=== PATIENT | female | born 1995 | race African-American/Black ===

== ENCOUNTER 2018-07-25 02:17 | Inpatient (IN) | payer BC, OTHER ==
[2018-09-16] MEDS ORDERED: Butorphanol Tartrate 1 MG/ML VIAL SLOW IVP PRN (21:04)
[2018-09-16] MEDS ORDERED: Lactated Ringer's 1,000 ML IV SCH (21:04)
[2018-09-16] MEDS ORDERED: NS w/ Oxytocin 10 units 500 ML IV SCH (21:04)
[2018-09-16] MEDS ORDERED: HYDROcodone/Acetaminophen 5/325 mg Tablet PO PRN ×2 (21:04)
[2018-09-16] MEDS ORDERED: Ibuprofen 800 MG TAB PO PRN (21:04)
[2018-09-16] MEDS ORDERED: Promethazine HCl 25 MG/ML VIAL IM PRN (21:04)
[2018-09-16] MEDS ORDERED: Lidocaine 1% (PF) 30 ML VIAL SC PRN (21:04)
[2018-09-16] MEDS ORDERED: Ondansetron PF 4 MG/2 ML Vial IVP PRN (21:04)
[2018-09-16] MEDS ORDERED: NS / Oxytocin 40 units/1000ml 1,000 ML IV PRN (21:04)
[2018-09-16 22:16] VITALS: BMI 25.0
[2018-09-16 22:16] LABS: Hemoglobin 11.5 g/dL (12.0-16.0); Mean Corpuscular HGB CONC 31.8 g/dL (32.0-36.0); Mean Corpuscular Hemoglobin 25.5 pg (27.0-31.0); Mean Platelet Volume 13.2 fL (7.4-10.4); Platelet Count 135 thou/uL (130-400); RBC Distribution Width 15.6 % (11.5-14.5); Red Blood Cell (RBC) Count 4.51 mill/uL (4.20-5.40); White Blood Cell (WBC) Count 8.6 thou/uL (4.8-10.8)
[2018-09-16] MEDS: Lactated Ringer's 1,000 ML IV SCH (22:27)
[2018-09-16] MEDS ORDERED: Misoprostol 100 MCG TAB VAG SCH (22:30)
[2018-09-16 22:31] LABS: Syphilis Antibody Nonreactive (Nonreactive); Syphilis Antibody Index 0.05 S/CO (<1.00 Non-Reactive)
[2018-09-17 00:03] LABS: HBSAg Index 0.41 S/CO (0-0.99); Hep B Surf Ag Non-Reactive S/CO (NonReactive)
[2018-09-17] MEDS: Misoprostol 100 MCG TAB VAG SCH ×4 (03:35→18:39)
[2018-09-17] MEDS: Lactated Ringer's 1,000 ML IV SCH ×2 (03:40→18:39)
[2018-09-17] MEDS ORDERED: Fentanyl 4 mcg/Bup 0.1% Cadd 100 ML ONE (08:11)
[2018-09-17] MEDS ORDERED: Promethazine HCl 25 MG/ML VIAL IM PRN ×2 (08:14→13:59)
[2018-09-17] MEDS ORDERED: Lactated Ringer's 500 ML IV PRN (08:14)
[2018-09-17] MEDS ORDERED: Acetaminophen 325 MG TAB PO PRN (08:14)
[2018-09-17] MEDS ORDERED: Naloxone HCl 0.4 mg/ml Vial IVP PRN ×2 (08:14)
[2018-09-17] MEDS ORDERED: diphenhydrAMINE 50 MG/ML VIAL IVP PRN (08:14)
[2018-09-17] MEDS ORDERED: Ondansetron PF 4 MG/2 ML Vial IVP PRN ×2 (08:14→13:59)
[2018-09-17] MEDS ORDERED: ePHEDrine/0.9% NaCl/PF SYRINGE 50 mg/10 ml SLOW IVP PRN (08:14)
[2018-09-17] MEDS ORDERED: Fentanyl 4 mcg/Bupivacaine 0.1% Cassette 100 ML EPIDURAL SCH (08:15)
[2018-09-17] MEDS ORDERED: Communication Order-Pharmacy FS SCH (08:15)
[2018-09-17] MEDS ORDERED: NS / Oxytocin 40 units/1000ml 1,000 ML ONE (11:06)
--- NOTE | 2018-09-17 13:46 | PDOC.OPDEL ---
OB Operative/Delivery Note Delivery Dr/Surgeon: Yaya for [facility] Pre-Delivery Diagnosis: elective induction Procedure/Post Delivery Dx: spontaneous vaginal delivery Weeks gestation: 39 Anesthesia: epidural - Findings A Sex: female Weight: 0 oz ( and wt pending ) - Additional Findings/Plan Placenta delivered: spontaneous Repaired Obstetrical Laceration: 1st degree (repair 2-0 chromic) Estimated blood loss: 300 Post delivery plan: routine recovery
[2018-09-17] MEDS ORDERED: Adacel (T-DAP) 0.5 ML SYRINGE IM ONE (13:59)
[2018-09-17] MEDS ORDERED: HYDROcodone/Acetaminophen 5/325 mg Tablet PO PRN ×2 (13:59)
[2018-09-17] MEDS ORDERED: Milk Of Magnesia 30 ML UDCUP PO PRN (13:59)
[2018-09-17] MEDS ORDERED: Benzocaine-Menthol 82.5 ML CAN TOP PRN (13:59)
[2018-09-17] MEDS ORDERED: diphenhydrAMINE 25 MG CAP PO PRN (13:59)
[2018-09-17] MEDS ORDERED: Preparation H Ointment 28 GM TUBE PR PRN (13:59)
[2018-09-17] MEDS ORDERED: Bisacodyl 10 MG SUPP PR PRN (13:59)
[2018-09-17] MEDS ORDERED: Zolpidem Tartrate 5 MG TAB PO PRN (13:59)
[2018-09-17] MEDS ORDERED: NS / Oxytocin 40 units/1000ml 1,000 ML IV SCH (14:00)
[2018-09-17] MEDS: Ibuprofen 800 MG TAB PO SCH ×2 (16:11→22:09)
[2018-09-17] MEDS: Ferrous Sulfate 325 MG TAB PO SCH (18:19)
[2018-09-17] MEDS: Docusate Calcium (SURFAK) 240 MG CAP PO SCH (22:11)
[2018-09-18] MEDS: Ibuprofen 800 MG TAB PO SCH ×3 (05:27→21:14)
[2018-09-18] MEDS: Ferrous Sulfate 325 MG TAB PO SCH ×2 (08:32→16:37)
[2018-09-18] MEDS: Docusate Calcium (SURFAK) 240 MG CAP PO SCH ×2 (08:33→21:14)
[2018-09-18] MEDS: Prenatal Vitamin 1 TAB PO SCH (08:33)
[2018-09-19] MEDS: Ibuprofen 800 MG TAB PO SCH ×2 (06:06→13:31)
--- NOTE | 2018-09-19 07:35 | DIS ---
DATE OF ADMISSION: 09/16/2018 DATE OF DISCHARGE: 09/19/2018 ADMITTING DIAGNOSIS: Term induction of labor. DISCHARGE DIAGNOSIS: Term induction of labor. PROCEDURE PERFORMED: Term spontaneous vaginal delivery. CONSULTATIONS: None. HOSPITAL COURSE: The patient is a 23-year-old, G1, now P1, female, who was admitted to the hospital at 39 weeks and 6 days for elective induction of labor with a cervical exam of 3, 90, and zero station. The patient proceeded with an uncomplicated term spontaneous vaginal delivery. For complete details, please refer to the delivery note. Her course has been uncomplicated. Today is day 2. The patient reports that she is tolerating p.o., voiding on her own, having decreased lochia. Her predelivery hemoglobin was 11.5, hematocrit 36.1, and platelets 135,000. PHYSICAL EXAMINATION: VITAL SIGNS: At the time of discharge, blood pressure 120/59, temperature 98.4, pulse of 59, respiratory rate of 18, and saturating 97% on room air. GENERAL: She appears to be in no acute distress. She is alert and oriented, cooperative and pleasant to interact with. HEENT: Head is normocephalic, atraumatic. ABDOMEN: Fundus is firm at the umbilicus. EXTREMITIES: Nontender. Minimal edema and symmetrical. DISCHARGE INSTRUCTIONS: The patient will be discharged to home. She has instructions to follow up with Dr. Javier in 6 weeks or sooner if she experiences fever, increasing pain, or bleeding. She has a prescription for ibuprofen that has been sent electronically. Job ID: [id number]
[2018-09-19] MEDS: Ferrous Sulfate 325 MG TAB PO SCH (09:16)
[2018-09-19] MEDS: Docusate Calcium (SURFAK) 240 MG CAP PO SCH (09:16)
[2018-09-19] MEDS: Prenatal Vitamin 1 TAB PO SCH (09:16)
[2018-09-19 09:36] VITALS: BP 127/71; TEMP 97.5
== END 2018-09-19 14:42 | disposition home or self-care (01) | DRG 807 ==
LOC: L&D 09-16 19:46 → 3SE 09-17 18:21
PROVIDERS: ADMIT Obstetrics & Gynecology; ATTEND Obstetrics & Gynecology
PROC: 10907ZC Drainage of Amniotic Fluid, Therapeutic from Products of Conception, Via Natural or Artificial Opening (ICD-10-PCS; principal; 2018-09-16)
PROC: 10E0XZZ Delivery of Products of Conception, External Approach (ICD-10-PCS; 2018-09-16)
PROC: 3E033VJ Introduction of Other Hormone into Peripheral Vein, Percutaneous Approach (ICD-10-PCS; 2018-09-16)
DX: O70.0 First degree perineal laceration during delivery (principal); Z37.0 Single live birth; Z3A.39 39 weeks gestation of pregnancy
CPT/HCPCS: 36415; 51702; 85027; 86780; 86850; 86900; 86901; 87340; J0595; J2590

== ENCOUNTER 2021-12-20 02:26 | Emergency (ER) | payer BC, OTHER ==
[2021-12-20 03:04] LABS: #Basophils 0.1 thou/uL (0.0-0.2); #Eosinphils 0.3 thou/uL (0.0-0.7); #Lymphocytes 3.7 thou/uL (1.20-3.40); #Monocytes 0.7 thou/uL (0.11-0.59); #Neutrophils 6.6 thou/uL (1.40-6.50); %Basophils 0.7 % (0.0-1.0); %Eosinophils 2.6 % (0.0-10.0); %Lymphocytes 32.6 % (21.0-51.0); %Neutrophils 58.1 % (42.0-75.0); Hemoglobin 12.7 g/dL (12.0-16.0); Mean Corpuscular HGB CONC 30.9 g/dL (32.0-36.0); Mean Corpuscular Volume 87.3 fL (78.0-98.0); Mean Platelet Volume 9.8 fL (7.4-10.4); Platelet Count 255 thou/uL (130-400); RBC Distribution Width 11.8 % (11.5-14.5); Red Blood Cell (RBC) Count 4.72 mill/uL (4.20-5.40); White Blood Cell (WBC) Count 11.3 thou/uL (4.8-10.8)
[2021-12-20 03:10] LABS: BHCG - Serum Negative (NEGATIVE); Pregs Control Background? CLEAR/WHITE (CLR/WHITE); Pregs Control Bar Appear? YES (CONTROL BAR)
[2021-12-20 03:25] LABS: Anion Gap 25 mmol/L (10-20); BUN (Urea Nitrogen) 11 mg/dL (7.0-18.7); Calc. Creatinine Clearance 0 mL/min (70-130); Chloride 108 mmol/L (98-107); Potassium 3.4 mmol/L (3.5-5.1); Sodium 139 mmol/L (136-145)
[2021-12-20 03:26] LABS: ALT (SGPT) 11 U/L (8-55); AST (SGOT) 24 U/L (5-34); Albumin 4.5 g/dL (3.5-5.0); Alkaline Phosphatase 71 U/L (40-110); Bilirubin, Total 0.9 mg/dL (0.2-1.2); Calcium 9.4 mg/dL (7.8-10.44); Estimated GFR 92; Glucose 113 mg/dL (70-105); Protein, Total 7.5 g/dL (6.0-8.3)
[2021-12-20 03:40] LABS: Carbon Dioxide 9 mmol/L (22-29)
[2021-12-20 04:42] LABS: Actual Bicarbonate (HCO3v) 21 mEq/L (22-28); Base Excess -5.6 mEq/L (-2.0 to +3.0); Calcium, Ionized (venous) 1.19 mmol/L (1.16-1.32); Chloride (VBG) 106 mmol/L (98-106); Hemoglobin (Hb) 13.3 g/dL (11.7-15.5); Potassium (VBG) 4.46 mmol/L (3.70-5.30); Sodium 138.1 mmol/L (133-146)
[2021-12-20 05:12] LABS: Anion Gap 12 mmol/L (10-20); BUN (Urea Nitrogen) 11 mg/dL (7.0-18.7); Calc. Creatinine Clearance 0 mL/min (70-130); Calcium 9.3 mg/dL (7.8-10.44); Carbon Dioxide 20 mmol/L (22-29); Chloride 106 mmol/L (98-107); Estimated GFR 105; Glucose 114 mg/dL (70-105); Potassium 4.2 mmol/L (3.5-5.1); Sodium 134 mmol/L (136-145)
[2021-12-20] MEDS ORDERED: Fluorescein Opthalmic Strip ONE (05:24)
[2021-12-20] MEDS ORDERED: Boostrix 0.5 ML (Tdap) VIAL (>/=7 yrs of age) ONE (05:24)
[2021-12-20] MEDS ORDERED: Proparacaine 0.5% Opth 15 ML BOT ONE ×2 (05:24→05:25)
[2021-12-20] MEDS ORDERED: Morphine 4 MG/ML VIAL ONE (05:48)
[2021-12-20] MEDS ORDERED: Iopamidol 370 76% 100 ML VIAL ONE (14:28)
== END 2021-12-20 06:28 | disposition home or self-care (01) ==
LOC: ERS 02:26
DX: S06.0X9A Concussion with loss of consciousness of unspecified duration, initial encounter (principal); S00.83XA Contusion of other part of head, initial encounter; S00.432A Contusion of left ear, initial encounter; S10.93XA Contusion of unspecified part of neck, initial encounter; H11.32 Conjunctival hemorrhage, left eye; Y04.2XXA Assault by strike against or bumped into by another person, initial encounter; Z23 Encounter for immunization
CPT/HCPCS: 36415; 70450; 70486; 70498; 72125; 80053; 82805; 84703; 85025; 90471; 90715; 96374; J2270; Q9967